=== PATIENT | male | born 1985 | race Caucasian/White ===

== ENCOUNTER 2021-03-10 04:33 | Emergency (ER) | payer OTHER ==
[~2021-03-10] VITALS: Ht 190.5 cm; Wt 81.7 kg
== END 2021-03-10 06:23 | disposition home or self-care (01) ==
LOC: ER 04:33
DX: S30.860A Insect bite (nonvenomous) of lower back and pelvis, initial encounter (principal); F17.210 Nicotine dependence, cigarettes, uncomplicated; Z88.6 Allergy status to analgesic agent; W57.XXXA Bitten or stung by nonvenomous insect and other nonvenomous arthropods, initial encounter
CPT/HCPCS: 99283